=== PATIENT | female | born 1955 | race Caucasian/White ===

== ENCOUNTER 2016-09-28 20:40 | Emergency (ER) | payer BC ==
[2016-09-28] MEDS ORDERED: Ketorolac Tromethamine 60 MG/2 ML VIAL ONE (20:52)
== END 2016-09-28 21:23 | disposition home or self-care (01) ==
LOC: BURERS 20:40
DX: G43.909 Migraine, unspecified, not intractable, without status migrainosus (principal)
CPT/HCPCS: 96372; J1885

== ENCOUNTER 2016-11-07 04:37 | Emergency (ER) | payer BC, SELFPAY ==
[2016-11-07] MEDS ORDERED: Ketorolac Tromethamine 60 MG/2 ML VIAL ONE (04:58)
[2016-11-07] MEDS ORDERED: Ondansetron ODT 4 MG TAB ONE (04:58)
== END 2016-11-07 05:11 | disposition home or self-care (01) ==
LOC: BURERS 04:37
DX: G43.909 Migraine, unspecified, not intractable, without status migrainosus (principal); Z79.899 Other long term (current) drug therapy
CPT/HCPCS: J1885; Q0162

== ENCOUNTER 2018-01-05 04:24 | Emergency (ER) | payer BC ==
[2018-01-05] MEDS ORDERED: Ondansetron HCl/PF 4 MG/2 ML Vial ONE (04:34)
[2018-01-05] MEDS ORDERED: diphenhydrAMINE 50 MG/ML VIAL ONE (05:04)
[2018-01-05] MEDS ORDERED: Prochlorperazine 10 MG/2 ML VIAL ONE (05:04)
[2018-01-05] MEDS ORDERED: Ketorolac Tromethamine 30 MG/ML VIAL ONE (05:04)
== END 2018-01-05 05:25 | disposition home or self-care (01) ==
LOC: BURERS 04:24
DX: G43.909 Migraine, unspecified, not intractable, without status migrainosus (principal)
CPT/HCPCS: 96374; 96375; J0780; J1200; J1885; J2405

== ENCOUNTER 2018-09-27 22:29 | Emergency (ER) | payer BC ==
[2018-09-27] MEDS ORDERED: Ketorolac Tromethamine 30 MG/ML VIAL ONE (22:41)
== END 2018-09-27 22:46 | disposition home or self-care (01) ==
LOC: BURERS 22:29
DX: G43.909 Migraine, unspecified, not intractable, without status migrainosus (principal)
CPT/HCPCS: 96372; J1885